=== PATIENT | male | born 1935 | race Two or more races ===

== ENCOUNTER 2018-09-14 11:14 | Outpatient (CLI) | payer OTHER ==
[~2018-09-14 11:14] MED LIST: ASA-EC81 MG PO; ATIVAN1 M1 PO; DIOVAN160 M1; DIOVAN160 M1 PO; FOLIC ACID1 MG PO; INTESTINEX680 MG PO; Imdur 30MG PO; LIPITOR40 MG PO; Neurin-Sl Tablet Sl SL; PLAVIX 75MG PO; PRE PROTEIN 2030 ML PO; RESTORIL15 MG PO; SEROQUEL25 MG PO; Synthroid PO; TAMS0.4C PO; TOPROL XL25 M1 PO; VITAMIN B COMPL1 CAP PO; ZANTAC150 M3 PO; ZOCOR20 MG; ZOCOR20 MG PO
== END 2018-09-14 13:02 | disposition home or self-care (01) ==
LOC: RAD 501 11:14
DX: C34.12 Malignant neoplasm of upper lobe, left bronchus or lung (principal); J69.0 Pneumonitis due to inhalation of food and vomit